=== PATIENT | male | born 1995 | race Caucasian/White ===

== ENCOUNTER 2018-12-15 09:06 | Emergency (ER) | payer BC, OTHER ==
[~2018-12-15] VITALS: Ht 177.8 cm; Wt 74.8 kg
[~2018-12-15 09:06] MED LIST: NOHOMEMEDICATIONS
[2018-12-15] MEDS ORDERED: XANAX 0.5 MG0.5 MG PO (09:22)
[2018-12-15] MEDS ORDERED: EFFEXOR XR37.5 MG PO (09:22)
[2018-12-15 09:37] LABS: HEMATOCRIT 49.3 % (42.0-52.0); HEMOGLOBIN 16.6 gm/dL (14.0-18.0); MCH 31.9 pg (26.0-34.0); MCHC 33.7 g/dL (28.0-37.0); MCV 94.7 fL (80.0-100.0); PLATELET COUNT 429 thou/uL (150-400); RBC 5.21 mil/uL (4.50-6.00); RDW 13.1 % (10.5-14.5); WBC 20.6 thou/uL (4.0-11.0)
[2018-12-15 09:49] LABS: CREATININE 1.3 mg/dL (0.7-1.3); POTASSIUM 4.1 mmol/L (3.5-5.1)
[2018-12-15 09:54] LABS: ALBUMIN 4.9 g/dL (3.4-5.0); TOTAL BILIRUBIN 1.5 mg/dL (<0.1-1.0); TOTAL PROTEIN 8.5 g/dL (6.4-8.2)
[2018-12-15 10:36] LABS: ABSOLUTE NEUTROPHILS 17.3 thou/uL (1.4-8.2)
[2018-12-15 11:18] LABS: URINE BILIRUBIN NEGATIVE (Negative); URINE BLOOD NEGATIVE (Negative); URINE CLARITY CLEAR; URINE COLOR YELLOW; URINE GLUCOSE-RANDOM* NEGATIVE (Negative); URINE KETONES 1+ (Negative); URINE LEUKOCYTES NEGATIVE (Negative); URINE NITRITE NEGATIVE (Negative); URINE PROTEIN (DIPSTICK) 2+ (Negative)
[2018-12-15 11:32] LABS: CASTS None Seen /LPF (None Seen); CRYSTALS None Seen /LPF (None Seen); SQUAMOUS None Seen /LPF (0-3)
[2018-12-15 11:33] LABS: URINE WBC 6-15 Few /HPF (0-5)
[2018-12-15 11:34] LABS: BACTERIA 1-9 Few /HPF (None Seen); URINE RBC 0-2 Rare /HPF (0-2)
[2018-12-15 11:36] LABS: WBC CLUMPS Few (None Seen)
[2018-12-15 11:59] VITALS: BP 134/76
[2018-12-15] MEDS ORDERED: PHENERGAN50 MG RECTAL (11:59)
== END 2018-12-15 12:02 | disposition home or self-care (01) ==
LOC: ER 09:06
PROVIDERS: Emergency Medicine
DX: R11.2 Nausea with vomiting, unspecified (principal); F17.210 Nicotine dependence, cigarettes, uncomplicated; F41.0 Panic disorder [episodic paroxysmal anxiety]

== ENCOUNTER 2019-11-08 05:19 | Emergency (ER) | payer BC, OTHER ==
[~2019-11-08] VITALS: Ht 177.8 cm; Wt 65.8 kg
[~2019-11-08 05:19] MED LIST changes: +EFFEXOR XR37.5 MG PO; +PHENERGAN50 MG RECTAL; +XANAX 0.5 MG0.5 MG PO
[2019-11-08] MEDS ORDERED: ZOLOFT100 MG PO (05:24)
[2019-11-08 05:55] LABS: BASOPHILS 0.4 % (0.0-2.0); EOSINOPHILS 0.1 % (0.0-3.0); HEMATOCRIT 45.8 % (42.0-52.0); HEMOGLOBIN 15.7 gm/dL (14.0-18.0); MCHC 34.2 g/dL (28.0-37.0); MCV 96.6 fL (80.0-100.0); MONOCYTES 6.2 % (1.0-8.0); PLATELET COUNT 313 thou/uL (150-400); POLYS 85.3 % (36.0-66.0); RBC 4.74 mil/uL (4.50-6.00); RDW 13.2 % (10.5-14.5); WBC 15.2 thou/uL (4.0-11.0)
[2019-11-08 06:04] LABS: CALCIUM 9.4 mg/dL (8.5-10.1); CREATININE 1.4 mg/dL (0.7-1.3)
[2019-11-08 06:12] LABS: ALBUMIN 4.7 g/dL (3.4-5.0); TOTAL BILIRUBIN 1.3 mg/dL (0.2-1.0); TOTAL PROTEIN 7.8 g/dL (6.4-8.2)
[2019-11-08 06:19] LABS: URINE BILIRUBIN NEGATIVE (Negative); URINE BLOOD NEGATIVE (Negative); URINE CLARITY CLEAR; URINE COLOR YELLOW; URINE GLUCOSE-RANDOM* NEGATIVE (Negative); URINE KETONES 2+ (Negative); URINE LEUKOCYTES-REFLEX NEGATIVE (Negative); URINE NITRITE-REFLEX NEGATIVE (Negative); URINE PROTEIN (DIPSTICK) 1+ (Negative); URINE SPECIFIC GRAVITY >= 1.030 (1.005-1.035)
[2019-11-08 07:36] LABS: CASTS None Seen /LPF (None Seen); MUCUS >6 Heavy strn/LPF (None Seen); SQUAMOUS 0-3 Few /LPF (0-3); URINE RBC None Seen /HPF (0-2); URINE WBC-REFLEX 0-5 Rare /HPF (0-5)
[2019-11-08 07:37] LABS: BACTERIA-REFLEX None Seen /HPF (None Seen); CRYSTALS None Seen /LPF (None Seen)
[2019-11-08] MEDS ORDERED: ZOFRAN ODT4 MG PO (07:49)
[2019-11-08 07:58] VITALS: BP 124/83
--- NOTE | 2019-11-08 08:48 | EKG ---
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
== END 2019-11-08 07:59 | disposition home or self-care (01) ==
LOC: ER 05:19
PROVIDERS: Emergency Medicine
DX: F12.188 Cannabis abuse with other cannabis-induced disorder (principal); K92.0 Hematemesis; R10.13 Epigastric pain; R19.7 Diarrhea, unspecified; F32.9 Major depressive disorder, single episode, unspecified; F41.9 Anxiety disorder, unspecified; F17.210 Nicotine dependence, cigarettes, uncomplicated; Z79.899 Other long term (current) drug therapy